=== PATIENT | male | born 1975 | race Caucasian/White ===

== ENCOUNTER 2019-08-02 19:15 | Emergency (ER) | payer SELFPAY ==
[2019-08-02] MEDS ORDERED: THIAMINE HCL 100 MG, FOLIC ACID 1 MG in NORMAL SALINE 250 ML IV ONE (19:30)
[2019-08-02] MEDS ORDERED: NORMAL SALINE 1000 ML 1,000 ML IV ONE (19:31)
--- NOTE | 2019-08-02 19:32 | ER Document Report ---
ED Medical Screen (RME) - General Chief Complaint: Medical Clearance Stated Complaint: ALCOHOL WITHDRAWEL Time Seen by Provider: 08/02/19 19:20 - HPI Notes: 08/02/19 19:31 Patient is a 44-year-old male with a history of alcohol abuse who presents with family requesting medical clearance to be able to go to [place] for detox. They went there initially, but his alcohol was 440 so they sent him here for evaluation. Last alcohol intake was about an hour and a half ago. He states that he drinks about half a gallon of liquor daily. He has otherwise been feeling well. He has been able to eat and drink without difficulty. Denies drug allergies. No fever, chest pain, abdominal pain. I have treated and performed a rapid initial assessment of this patient. A comprehensive ED assessment and evaluation of the patient, analysis of test results and completion of medical decision making process will be conducted by additional ED providers. PHYSICAL EXAMINATION: GENERAL: Well-appearing, well-nourished and in no acute distress. A&Ox2. Answers questions appropriately. Intoxicated. Lungs: CTAB Heart: RRR - Related Data Allergies/Adverse Reactions: No Known Allergies Allergy (Verified 08/02/19 19:24)
[2019-08-02 20:20] LABS: ABSOLUTE EOSINOPHILS # (AUTO) 0.2 10^3/uL (0.0-0.6); ABSOLUTE LYMPHOCYTES (AUTO) 1.3 10^3/uL (0.5-4.7); ABSOLUTE MONOCYTES (AUTO) 0.3 10^3/uL (0.1-1.4); ABSOLUTE NEUT (AUTO) 3.3 10^3/uL (1.7-8.2); BASOPHILS % (AUTO) 0.6 % (0-2); EOSINOPHILS % (AUTO) 3.7 % (0-6); HEMOGLOBIN 18.2 g/dL (13.5-17.0); LYMPHOCYTES % (AUTO) 25.5 % (13-45); MEAN CORPUSCULAR HEMOGLOBIN 35.2 pg (27.0-33.4); MEAN CORPUSCULAR HGB CONC 34.5 g/dL (32.0-36.0); MEAN CORPUSCULAR VOLUME 102 fl (80-97); PLATELET COUNT 267 10^3/uL (150-450); RED BLOOD COUNT 5.18 10^6/uL (4.35-5.55); RED CELL DISTRIBUTION WIDTH 14.8 % (11.5-14.0); SEGMENTED NEUTROPHILS % (AUTO) 64.2 % (42-78); TOTAL CELLS COUNTED % (AUTO) 100 %; WHITE BLOOD COUNT 5.2 10^3/uL (4.0-10.5)
[2019-08-02 20:23] LABS: APPEARANCE,URINE CLEAR; BILIRUBIN,URINE NEGATIVE (NEGATIVE); COLOR,URINE YELLOW; GLUCOSE, URINE NEGATIVE (NEGATIVE); KETONES,URINE TRACE mg/dL (NEGATIVE); LEUKOCYTE ESTERASE,URINE NEGATIVE (NEGATIVE); NITRITE,URINE NEGATIVE (NEGATIVE); PROTEIN,URINE 100 mg/dL (NEGATIVE); URINE SPECIFIC GRAVITY 1.008; UROBILINOGEN,URINE NEGATIVE mg/dL (<2.0)
[2019-08-02 20:37] LABS: ALKALINE PHOSPHATASE 76 U/L (38-126); ANION GAP 18 (5-19); ASPARTATE AMINO TRANSFERASE 183 U/L (17-59); BILIRUBIN,DIRECT 0.3 mg/dL (0.0-0.4); BILIRUBIN,TOTAL 0.5 mg/dL (0.2-1.3); BLOOD UREA NITROGEN 10 mg/dL (7-20); CALCIUM 9.8 mg/dL (8.4-10.2); CARBON DIOXIDE 28 mmol/L (22-30); CHLORIDE 99 mmol/L (98-107); GLUCOSE 86 mg/dL (75-110); URINE AMPHETAMINES SCREEN NEGATIVE; URINE BARBITURATES SCREEN NEGATIVE; URINE BENZODIAZEPINES SCREEN NEGATIVE; URINE COCAINE SCREEN NEGATIVE; URINE MARIJUANA (THC) SCREEN NEGATIVE; URINE METHADONE SCREEN NEGATIVE; URINE PHENCYCLIDINE SCREEN NEGATIVE
[2019-08-02 20:46] LABS: ACETAMINOPHEN < 10 ug/mL (10-30); SALICYLATE < 1.0 mg/dL (2.0-20.0)
[2019-08-02 20:47] LABS: ALCOHOL 413 mg/dL (NONE DETECTED)
--- NOTE | 2019-08-02 20:59 | ER Document Report ---
ED General - General Chief Complaint: Withdrawal Stated Complaint: ALCOHOL WITHDRAWEL Time Seen by Provider: 08/02/19 19:20 TRAVEL OUTSIDE OF THE [place] IN LAST 30 DAYS: No - HPI Notes: 44-year-old male presents requesting alcohol detox. This gentleman has a longstanding history of chronic alcoholism and says he has been [place] to a detox facility out of state on 5 prior occasions. He had, however, remained sober for close to 7 years and began drinking again about 6 weeks ago after of his girlfriend. 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 He says he has been drinking approximately 1/2 gallon of bourbon or vodka per day. He has been having some intermittent blackouts and has decided that it is time to come in for detox. Patient had tried to "sign himself and" [facility] but on breathalyzer was found to have alcohol greater than 400 and was advised that he would require medical clearance through the ED first. Patient denies any suicidal/homicidal ideation. He denies auditory or visual hallucinations. He admits that he used some cocaine about 2 weeks ago but says he does not abuse drugs on a regular basis. Patient denies any history of diabetes, hypertension or cardiac disease. He denies any history of major surgery. - Related Data Allergies/Adverse Reactions: bupropion [From Wellbutrin] Allergy (Verified 08/02/19 19:44) cefaclor [From Ceclor] Allergy (Verified 08/02/19 19:44) Past Medical History - General Information source: Patient - Social History Smoking Status: Never Smoker Chew tobacco use (# tins/day): No Frequency of alcohol use: Here for Alcohol Detox Drug Abuse: None Family History: Reviewed & Not Pertinent Patient has suicidal ideation: Yes - No plan currently Patient has homicidal ideation: No Review of Systems - Review of Systems Notes: Constitutional: Negative for fever. HENT: Negative for sore throat. Eyes: Negative for visual changes. Cardiovascular: Negative for chest pain. Respiratory: Negative for shortness of breath. Gastrointestinal: Negative for abdominal pain, vomiting or diarrhea. Genitourinary: Negative for dysuria. Musculoskeletal: Negative for back pain. Skin: Negative for rash. Neurological: Negative for headaches, weakness or numbness. 10 point ROS negative except as marked above and in HPI. Physical Exam - Notes Notes: GENERAL: Well-developed well-nourished male approximately stated age appearing in no acute distress. Strong odor of alcohol present. SKIN: Flushed. Good turgor no rashes. HEAD: Normocephalic atraumatic. EYES: Pupils are equal and sluggish. Nystagmus on lateral gaze bilaterally. Conjunctivae injected. EARS: CANALS AND TMS CLEAR. NOSE: CLEAR. MOUTH: Moist mucosa. Good dentition. No stridor or edema. No drooling. NECK: Supple. No masses or thyromegaly. No adenopathy. Carotids 2+ without bruits. No JVD. BACK: Symmetrical without tenderness. CHEST: Respirations unlabored. Breath sounds clear and symmetrical. HEART: Regular rhythm. No murmur gallop or rub. ABDOMEN: Soft nontender without masses, organomegaly or rebound. Bowel sounds normally active. No bruits. GENITALIA: Deferred. EXTREMITIES: No edema. No calf tenderness. Cap refill less than 1.5 seconds. Dorsalis pedis and posterior tibial pulses 3+ and symmetrical. NEUROLOGICAL: Mildly tremulous. GCS 14. Disoriented today. Alert. Ataxic gait. Speech is moderately slurred. Cranial nerves II through XII intact. Sensorimotor and cerebellar normal. Normal tone. PSYCHIATRIC: Appropriate affect. Course - Re-evaluation Re-evalutation: 08/03/19 02:17 Patient's blood alcohol was 413. Urine drug screen is negative. His chemistry profile was remarkable for elevation of transaminases consistent with alcoholic hepatitis. Patient is received a banana bag here. He has been given some oral Ativan as necessary for tremors. We will hold him until his alcohol is below 200 and then reevaluate for transfer to detox facility. - Laboratory Result Diagrams: 08/02/19 19:55 08/02/19 19:55 Laboratory results interpreted by me: 08/02/19 08/02/19 08/02/19 19:55 19:55 19:55 Hgb 18.2 H Hct 53.0 H MCV 102 H MCH 35.2 H RDW 14.8 H AST 183 H Total Protein 9.0 H Urine Protein 100 H Urine Ketones TRACE H Urine Blood SMALL H Salicylates < 1.0 L Acetaminophen < 10 L Serum Alcohol 413 H* Discharge - Discharge Clinical Impression: Chronic alcoholism Acute alcohol intoxication Qualifiers: Complication of substance-induced condition: with unspecified complication Qualified Code(s): F10.929 - Alcohol use, unspecified with intoxication, unspecified Alcoholic hepatitis Qualifiers: Ascites presence: without ascites Qualified Code(s): K70.10 - Alcoholic hepatitis without ascites Condition: Fair Disposition: REHAB FACILITY
[2019-08-02] MEDS: LORAZEPAM 1 MG TABLET PO SCH (21:03)
[2019-08-03] MEDS: LORAZEPAM 1 MG TABLET PO SCH ×2 (01:16→05:32)
[2019-08-03] MEDS ORDERED: ONDANSETRON 4 MG TAB.RAPDIS PO ONE (10:03)
[2019-08-03 10:20] VITALS: BP 152/88
--- NOTE | 2019-08-03 13:45 | EKG REPORT ---
SEVERITY:- NORMAL ECG - SINUS RHYTHM : Confirmed by: Jennifer Dhillon MD 03-Aug-2019 13:44:28
== END 2019-08-03 10:25 ==
LOC: ER 19:15
DX: F10.229 Alcohol dependence with intoxication, unspecified (principal); Y90.8 Blood alcohol level of 240 mg/100 ml or more; K70.10 Alcoholic hepatitis without ascites; R11.0 Nausea; R25.1 Tremor, unspecified; R45.851 Suicidal ideations; Z88.8 Allergy status to other drugs, medicaments and biological substances; Z88.1 Allergy status to other antibiotic agents
CPT/HCPCS: 93005; 99285; 96361; 96365; 36415; 80307 ×4; 85025; 80053; 81001; 93010; S0119; J3490; J3411; J7030; J7050

== ENCOUNTER 2020-02-10 13:59 | Emergency (ER) | payer SELFPAY ==
[2020-02-10] MEDS ORDERED: HYDROXYZINE HCL INJ 50 MG/1 ML VIAL IM ONE (14:35)
--- NOTE | 2020-02-10 14:37 | ER Document Report ---
ED Medical Screen (RME) - General Chief Complaint: Alcohol Withdrawl Stated Complaint: POSSIBLE ALCOHOL WITHDRAWAL Time Seen by Provider: 02/10/20 14:34 Mode of Arrival: Wheelchair Information source: Patient Notes: 44-year-old male presented to ED for complaint of alcohol withdrawal. He states he went to [facility] this morning and they sent him to [place]. When he got [facility] they told him he was too drunk and sent him to the ER. He states he had at least the fifth of vodka last night he does not know how much. States he went to the [facility] this morning and has been there all morning. He states he had been sober for about 7 years and follow-up the [facility] about a month or 2 ago and has been drinking heavily since then. He is alert and oriented staggering when attempts to walk. I have greeted and performed a rapid initial assessment of this patient. A comprehensive ED assessment and evaluation of the patient, analysis of test results and completion of medical decision making process will be conducted by an additional ED providers. TRAVEL OUTSIDE OF THE [place] IN LAST 30 DAYS: No - Related Data Allergies/Adverse Reactions: bupropion [From Wellbutrin] Allergy (Verified 08/02/19 19:44) cefaclor [From Ceclor] Allergy (Verified 08/02/19 19:44) Past Medical History - Social History Chew tobacco use (# tins/day): Yes Physical Exam - Vital signs Vitals: Temp Pulse Resp BP Pulse Ox 98.8 F 135 H 18 147/116 H 97 02/10/20 14:06 02/10/20 14:06 02/10/20 14:06 02/10/20 14:06 02/10/20 14:06 Course - Vital Signs Vital signs: Temp Pulse Resp BP Pulse Ox 98.8 F 135 H 18 147/116 H 97 02/10/20 14:06 02/10/20 14:06 02/10/20 14:06 02/10/20 14:06 02/10/20 14:06
[2020-02-10] MEDS: NORMAL SALINE 1000 ML 1,000 ML IV PRN ×2 (16:21→17:42)
[2020-02-10 16:39] LABS: ABSOLUTE LYMPHOCYTES (AUTO) 0.7 10^3/uL (0.5-4.7); ABSOLUTE MONOCYTES (AUTO) 0.4 10^3/uL (0.1-1.4); ABSOLUTE NEUT (AUTO) 6.9 10^3/uL (1.7-8.2); BASOPHILS % (AUTO) 0.3 % (0-2); EOSINOPHILS % (AUTO) 0.5 % (0-6); HEMATOCRIT 50.6 % (37.9-51.0); HEMOGLOBIN 17.5 g/dL (13.5-17.0); LYMPHOCYTES % (AUTO) 8.6 % (13-45); MEAN CORPUSCULAR HEMOGLOBIN 34.1 pg (27.0-33.4); MEAN CORPUSCULAR HGB CONC 34.6 g/dL (32.0-36.0); MEAN CORPUSCULAR VOLUME 99 fl (80-97); MONOCYTES % (AUTO) 5.5 % (3-13); PLATELET COUNT 237 10^3/uL (150-450); RED BLOOD COUNT 5.13 10^6/uL (4.35-5.55); RED CELL DISTRIBUTION WIDTH 16.7 % (11.5-14.0); SEGMENTED NEUTROPHILS % (AUTO) 85.1 % (42-78); TOTAL CELLS COUNTED % (AUTO) 100 %; WHITE BLOOD COUNT 8.1 10^3/uL (4.0-10.5)
[2020-02-10 17:04] LABS: APPEARANCE,URINE CLEAR; BILIRUBIN,URINE NEGATIVE (NEGATIVE); COLOR,URINE YELLOW; GLUCOSE, URINE NEGATIVE (NEGATIVE); KETONES,URINE 20 mg/dL (NEGATIVE); LEUKOCYTE ESTERASE,URINE NEGATIVE (NEGATIVE); NITRITE,URINE NEGATIVE (NEGATIVE); PROTEIN,URINE 100 mg/dL (NEGATIVE); URINE SPECIFIC GRAVITY 1.019; UROBILINOGEN,URINE NEGATIVE mg/dL (<2.0)
[2020-02-10 17:04] LABS: ALBUMIN 5.1 g/dL (3.5-5.0); ALCOHOL 172 mg/dL (NONE DETECTED); ALKALINE PHOSPHATASE 80 U/L (38-126); ANION GAP 14 (5-19); ASPARTATE AMINO TRANSFERASE 203 U/L (17-59); BILIRUBIN,DIRECT 0.1 mg/dL (0.0-0.4); BILIRUBIN,TOTAL 0.9 mg/dL (0.2-1.3); BLOOD UREA NITROGEN 10 mg/dL (7-20); CALCIUM 9.5 mg/dL (8.4-10.2); CARBON DIOXIDE 24 mmol/L (22-30); CHLORIDE 102 mmol/L (98-107); GLUCOSE 92 mg/dL (75-110); POTASSIUM 4.6 mmol/L (3.6-5.0); TOTAL PROTEIN 9.1 g/dL (6.3-8.2)
[2020-02-10 17:08] LABS: ACETAMINOPHEN < 10 ug/mL (10-30); SALICYLATE < 1.0 mg/dL (2.0-20.0)
[2020-02-10] MEDS ORDERED: LORAZEPAM INJ 2 MG/1 ML VIAL IV ONE ×4 (17:19→20:30)
[2020-02-10 17:25] LABS: URINE AMPHETAMINES SCREEN NEGATIVE; URINE BARBITURATES SCREEN NEGATIVE; URINE BENZODIAZEPINES SCREEN NEGATIVE; URINE COCAINE SCREEN NEGATIVE; URINE MARIJUANA (THC) SCREEN NEGATIVE; URINE METHADONE SCREEN NEGATIVE; URINE PHENCYCLIDINE SCREEN NEGATIVE
--- NOTE | 2020-02-10 17:25 | ER Document Report ---
ED General - General Chief Complaint: Alcohol Withdrawl Stated Complaint: POSSIBLE ALCOHOL WITHDRAWAL Time Seen by Provider: 02/10/20 14:34 Mode of Arrival: Wheelchair TRAVEL OUTSIDE OF THE [place] IN LAST 30 DAYS: No - HPI Notes: Chief complaint: Request for alcohol detox HPI: 44-year-old male well-known to me personally and to this ED for multiple prior visits for problems related to chronic alcoholism now presents again today requesting alcohol detox. Patient says that he has been drinking a large amount of vodka daily for over months. States his last alcohol intake was about 12 hours ago. He now feels very shaky. He denies seizures. He denies active hallucinations. He is tremulous. He is nauseated vomited once prior to arrival here. Patient also has a history of alcoholic hepatitis. He is otherwise been in reasonably good health. He is a non-smoker. He denies use of illicit drugs. He takes no prescription medications. He reports allergies to bupropion and cefaclor. He tried to go "check himself in" at [place] and was told that he was "too drunk". He denies any suicidal/homicidal ideation. Wants to go back to detox. He has had at least 7 prior detox admissions. 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 Patient is single. 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 HENT: Negative for sore throat. Eyes: Negative for visual changes. Cardiovascular: Negative for chest pain. Respiratory: Negative for shortness of breath. Gastrointestinal: As per HPI. Genitourinary: Negative for dysuria. Musculoskeletal: Negative for back pain. Skin: Negative for rash. Neurological: Negative for headaches, weakness or numbness. 10 point ROS negative except as marked above and in HPI. Physical Exam - Vital signs Vitals: Temp Pulse Resp BP Pulse Ox 98.8 F 135 H 18 147/116 H 97 02/10/20 14:06 02/10/20 14:06 02/10/20 14:06 02/10/20 14:06 02/10/20 14:06 Interpretation: Hypertensive, Tachycardic - Notes Notes: GENERAL: Well-developed well-nourished male approximately stated age appearing somewhat tremulous but otherwise in no acute distress. SKIN: Good turgor no rashes. HEAD: Normocephalic atraumatic. EYES: PERRLA. EOMI. Conjunctivae and sclerae clear. EARS: CANALS AND TMS CLEAR. NOSE: CLEAR. MOUTH: Moist mucosa. Good dentition. No stridor or edema. No drooling. NECK: Supple. No masses or thyromegaly. No adenopathy. Carotids 2+ without bruits. No JVD. BACK: Symmetrical without tenderness. CHEST: Respirations unlabored. Breath sounds clear and symmetrical. HEART: Tachycardic. Regular rhythm. No murmur gallop or rub. ABDOMEN: Soft nontender without masses, organomegaly or rebound. Bowel sounds normally active. No bruits. GENITALIA: Deferred. EXTREMITIES: No edema. No calf tenderness. Cap refill less than 1.5 seconds. Dorsalis pedis and posterior tibial pulses 3+ and symmetrical. NEUROLOGICAL: 2+ tremor. GCS 15. Alert and oriented x3. Normal gait. Fluent speech. Cranial nerves II through XII intact. Sensorimotor and cerebellar normal. Normal tone. PSYCHIATRIC: Appropriate affect. Course - Re-evaluation Re-evalutation: 02/10/20 17:29 CIWA score of 10. Patient is receiving a dose of IV Ativan currently and is getting 2 L of normal saline IV. Review of his labs shows blood alcohol 174 and his transaminases are about 3 times normal similar to prior values noted with alcoholic hepatitis. He is mildly polycythemic and again this is baseline for this gentleman. Urine drug screen is negative. 07/06/20 17:33 - Vital Signs Vital signs: Temp Pulse Resp BP Pulse Ox 98.4 F 108 H 20 147/87 H 93 02/10/20 18:24 02/10/20 19:09 02/10/20 20:01 02/10/20 20:00 02/10/20 20:01 - Laboratory Result Diagrams: 02/10/20 16:28 02/10/20 16:28 Laboratory results interpreted by me: 02/10/20 02/10/20 02/10/20 16:28 16:28 16:45 Hgb 17.5 H MCV 99 H MCH 34.1 H RDW 16.7 H Lymph % (Auto) 8.6 L Seg Neutrophils % 85.1 H AST 203 H ALT 183 H Total Protein 9.1 H Albumin 5.1 H Urine Protein 100 H Urine Ketones 20 H Urine Blood SMALL H Salicylates < 1.0 L Acetaminophen < 10 L - EKG Interpretation by Me Additional EKG results interpreted by me: 02/10/20 17:37 Twelve-lead EKG from 1638 hrs. is reviewed contemporaneously by me demonstrating normal sinus rhythm with a rate of 95. A QRS axis of -12 degrees is present. CO QRS and QT intervals are normal. Patient has no acute ST/T wave changes. There is no significant interval change compared with prior tracing dated 08/02/2019. Indication for current study: Alcohol withdrawal syndrome. Discharge - Discharge Clinical Impression: Chronic alcoholism Alcohol withdrawal syndrome Qualifiers: Complication of substance-induced condition: uncomplicated Qualified Code(s): F10.230 - Alcohol dependence with withdrawal, uncomplicated Alcoholic hepatitis Qualifiers: Ascites presence: without ascites Qualified Code(s): K70.10 - Alcoholic hepatitis without ascites Condition: Stable Disposition: HOME, SELF-CARE Additional Instructions: Go directly to [facility] for further management.
--- NOTE | 2020-02-10 17:29 | PSYCHOLOGICAL NOTE ---
Psych Note - Psych Note Date seen by psych provider: 02/10/20 Psych Note: Patient has a confirmed bed at [facility]; confirmed by [facility]. He was sent to [facility] ED by [facility] for medical clearance. They request a nurse to nurse prior to the patient's return to their facility- [phone]
--- NOTE | 2020-02-10 17:53 | EKG REPORT ---
SEVERITY:- NORMAL ECG - SINUS RHYTHM NONSPECIFIC ST-T CHANGES LATERAL LEADS. : Confirmed by: Thomas Luther MD 10-Feb-2020 17:52:11
[2020-02-10 20:22] VITALS: BP 147/87
== END 2020-02-10 22:15 | disposition home or self-care (01) ==
LOC: ER 13:59
DX: F10.230 Alcohol dependence with withdrawal, uncomplicated (principal); K70.10 Alcoholic hepatitis without ascites; R11.2 Nausea with vomiting, unspecified
CPT/HCPCS: 93005; 96376; 99285; 96372; 96361; 96374; 36415; 80307 ×4; 85025; 80053; 81001; 93010; J3410; J2060; J7030